=== PATIENT | female | born 1970 | race Two or more races ===

== ENCOUNTER 2020-06-03 05:10 | Day surgery (SDC) | payer OTHER ==
[~2020-06-03 05:10] MED LIST: OMEGA 3 PO; VITAMIN B12 PO
[2020-06-03] MEDS ORDERED: RECTICARE30 GM TOP (08:46)
[2020-06-03] MEDS ORDERED: PERCOCET 5-3251 EACH PO (08:46)
[2020-06-03] MEDS ORDERED: DERMOPLAST PAIN78 GM TOP (08:46)
== END 2020-06-03 14:50 | disposition home or self-care (01) ==
LOC: CIR.AMB 05:10 → EDBD 08:30 → CIR.AMB 14:50
PROVIDERS: ATTEND Surgery
DX: K64.3 Fourth degree hemorrhoids (principal); K64.4 Residual hemorrhoidal skin tags; Z20.822 Contact with and (suspected) exposure to COVID-19